=== PATIENT | male | born 1980 | race Two or more races ===

== ENCOUNTER 2022-09-05 14:04 | Emergency (ER) | payer OTHER ==
[~2022-09-05] VITALS: Ht 175.3 cm; Wt 62.6 kg
== END 2022-09-05 20:09 | disposition home or self-care (01) ==
LOC: ER 14:04
DX: S42.001A Fracture of unspecified part of right clavicle, initial encounter for closed fracture (principal); V19.9XXA Pedal cyclist (driver) (passenger) injured in unspecified traffic accident, initial encounter; Y93.9 Activity, unspecified; Y92.89 Other specified places as the place of occurrence of the external cause; Y99.9 Unspecified external cause status